=== PATIENT | female | born 1985 | race Caucasian/White ===

== ENCOUNTER 2018-02-15 15:58 | Inpatient (IN) | payer BC ==
[2018-02-15] MEDS ORDERED: AMPICILLIN SODIUM 2 GM VIAL ONE (17:10)
[2018-02-15] MEDS ORDERED: PROMETHAZINE HCL 25 MG/1 ML VIAL ONE (17:59)
[2018-02-15] MEDS ORDERED: BUTORPHANOL TARTRATE 1 MG/ML VIAL ONE ×2 (17:59)
[2018-02-15 18:30] VITALS: BMI 28.7
[2018-02-15] MEDS ORDERED: AMPICILLIN - 2 GM in SODIUM CHLORIDE 100 ML IVPB ONE (19:00)
[2018-02-15] MEDS ORDERED: TUBERCULIN PPD 5 TU/0.1ML SYRINGE (IN PATIENT USE ONLY) ID ONE (19:00)
[2018-02-15] MEDS ORDERED: BUTORPHANOL TARTRATE 1 MG/ML VIAL IVPB ONE (19:00)
[2018-02-15] MEDS ORDERED: PROMETHAZINE HCL 25 MG/1 ML VIAL IVPB ONE (19:00)
[2018-02-15] MEDS ORDERED: DEXTROSE 5%-LACTATED RINGERS 1,000 ML IV SCH (19:00)
[2018-02-15 19:28] LABS: BASO % 0.1 % (0-2.0); EOS % 0.4 % (0-4.5); HEMOGLOBIN 11.9 GM/dL (10.7-15.3); MCH 26.4 pg (25.7-33.7); MCHC 32.1 g/dl (32.0-36.0); MEAN CELL VOLUME 82.3 fl (80-96); MEAN PLT VOLUME 9.6 fl (7.5-11.1); MONO % 5.8 % (3.8-10.2); NEUT % 84.7 % (42.8-82.8); PLATELET COUNT 238 K/MM3 (134-434); RDW 15.8 % (11.6-15.6); WHITE BLOOD COUNT 21.4 K/mm3 (4.0-10.0)
[2018-02-15 19:43] LABS: INR 1.03 (0.83-1.09); PROTHROMBIN TIME (PATIENT) 12.1 SEC (9.7-13.0)
[2018-02-15 19:46] LABS: ACTIVATED PTT 28.9 SECONDS (25.2-36.5)
[2018-02-15 19:56] LABS: ANION GAP 12 MMOL/L (8-16); BLOOD UREA NITROGEN 7 mg/dL (7-18); CALCIUM 8.4 mg/dL (8.5-10.1); CHLORIDE 104 mmol/L (98-107); CO2 21 mmol/L (21-32); CREATININE 0.5 mg/dL (0.55-1.3); GLUCOSE,RANDOM 96 mg/dL (74-106); POTASSIUM 3.5 mmol/L (3.5-5.1); SODIUM 137 mmol/L (136-145)
[2018-02-15] MEDS ORDERED: LIDOCAINE HCL 1% PRESERVATIVE FREE - 30ML VIAL ONE (19:58)
[2018-02-15] MEDS ORDERED: OXYTOCIN 20 UNITS in 0.9% NS 20 UNIT/1,000 ML INFUS.BAG IV ONE (19:58)
--- NOTE | 2018-02-15 21:25 | HP ---
Past Medical History - Admission History of Present Illness: 32 yo @ 38 2/7 wks by first trimester ultrasound, EDC 02/27/2018 1. Prior at 36 wks, labor 2. Rh negative, s/p rhogam 12/04/2017 3. GBS positive, no penicillin allergy Patient presents with chief complaint of contractions which began at 1300 and increased in intensity and frequency. She experienced SROM on presentation to L& D. She reports movement, denies vaginal bleeding. History Source: Patient Limitations to Obtaining History: No Limitations - Past Medical History Cardiovascular: No: HTN Pulmonary: No: Asthma Gastrointestinal: No: GERD ...: 2 ...Para: 1 ...Term: 0 ...: 1 ...Spon : 0 ...Induced : 0 ...Multiple Gestation: 0 ...LMP: 05/24/17 ... Weeks Gestation by Dates: 38.1 ...EDC by Dates: 02/28/18 ...EDC by Sono: 02/27/18 Heme/Onc: No: Anemia - Past Surgical History Past Surgical History: Yes: None Hx Myomectomy: No Hx Transabdominal Cerclage: No - Smoking History Smoking history: Never smoked Have you smoked in the past 12 months: No - Alcohol/Substance Use Hx Alcohol Use: No - Social History History of Recent Travel: No Home Medications - Allergies Allergies/Adverse Reactions: Allergies Allergy/AdvReac Type Severity Reaction Status Date / Time No Known Allergies Allergy Verified 02/15/18 16:30 - Home Medications Home Medications: Ambulatory Orders Vit/Iron Fum/Folic AC [ Tablet] 1 each PO DAILY 02/20/16 Famotidine [Pepcid] 20 mg PO PRN 01/17/18 Family Disease History - Family Disease History Family History: Denies Review of Systems - Review of Systems Constitutional: reports: No Symptoms Cardiovascular: reports: No Symptoms Respiratory: reports: No Symptoms Gastrointestinal: reports: No Symptoms Musculoskeletal: reports: No Symptoms Integumentary: reports: No Symptoms Psychiatric: reports: No Symptoms Physical Exam - Maternity Vital Signs: Vital Signs Temperature 97.9 F 02/15/18 19:00 Pulse Rate 77 02/15/18 19:00 Respiratory Rate 20 02/15/18 19:00 Blood Pressure 121/77 02/15/18 19:00 O2 Sat by Pulse Oximetry (%) Constitutional: Yes: Well Nourished, No Distress, Calm Neck: Yes: Supple, Trachea Midline Cardiovascular: Yes: Regular Rate and Rhythm Lungs: Clear to auscultation - Abdominal Exam/OB Number of Fetuses: Single Presentation: Vertex Contractions: Yes Regularity: Regular Intensity: Moderate Monitor Mode: External Category: I Accelerations: Non-Uniform Decelerations: None - Physical Exam Psychiatric: Yes: Alert, Oriented - Labs Lab Results: CBC, BMP 02/15/18 19:10 02/15/18 19:10 Assessment/Plan 32 yo @ 38 3/7 wks active labor 1. Consents reviewed and signed 2. Admission labs reviewed 3. GBS positive 4. Will proceed with expectant management
[2018-02-15] MEDS: AMPICILLIN - 1 GM in SODIUM CHLORIDE 100 ML IVPB SCH (22:00)
[2018-02-15] MEDS ORDERED: AMPICILLIN SODIUM 1 GM VIAL ONE (22:10)
--- NOTE | 2018-02-15 22:46 | PN ---
Delivery - Delivery Vaginal Delivery: No Problems Episiotomy/Laceration: Midline, 1st degree EBL (cc): 400 Delivery, Single - Stages of Labor Date 1st Stage Initiatied: 02/15/18 Time 1st Stage Initiated: 13:00 Date 2nd Stage Initiated: 02/15/18 Time 2nd Stage Initiated: 22:00 Date of Delivery: 02/15/18 Time of Delivery: 22:23 Date Placenta Delivered: 02/15/18 Time Placenta Delivered: 22:32 - Condition of Infant Gender: Female Position: Right, OA Total Hours ROM (Hrs/Mins): 5 hours 40 minutes - 1 Minute Total Score: 9 5 Minutes Total Score: 9 - [place] Feeding Plan Initial Plan: Exclusive throughout hospitalization Remarks - Remarks Remarks: Patient progressed to fully dilated and at 2223 via delivered a viable female infant in GALLO position, APGARs 9,9. Weight and length unknown at this time. Head delivered spontaneously followed by shoulders and body without difficulty. Right compound hand noted. with spontaneous cry and placed on mother's abdomen. Nose and mouth was bulb suctioned. Cord was clamped and cut. Perineum and vagina examined, a first degree laceration was noted and repaired in the usual fashion. Placenta was delivered spontaneously and intact. Mild uterine atony noted, relieved with bimanual massage and 20 units of pitocin in 1 L IVF. All counts correct x 2. Mother and infant stable in LDR. EBL 400cc.
[2018-02-15 22:56] LABS: PLATELET ESTIMATE ADEQUATE
[2018-02-15] MEDS ORDERED: BENZOCAINE 28 GM HEMORRHOIDAL OINTMENT TP PRN (23:00)
[2018-02-15] MEDS ORDERED: WITCH HAZEL 50% (TUCKS) 40 PAD/JAR PAD TP PRN (23:00)
[2018-02-15] MEDS ORDERED: BISACODYL 10 MG SUPP.RECT RC PRN (23:00)
[2018-02-15] MEDS ORDERED: BENZOCAINE 20% 57 GM BOTTLE TP PRN (23:00)
[2018-02-15] MEDS ORDERED: METHYLERGONOVINE MALEATE 0.2 MG/1 ML AMP IM PRN (23:00)
[2018-02-15] MEDS ORDERED: OXYTOCIN 20 UNITS in 0.9% NS 20 UNIT/1,000 ML INFUS.BAG IV SCH (23:30)
[2018-02-16] MEDS: AMPICILLIN - 1 GM in SODIUM CHLORIDE 100 ML IVPB SCH (01:30)
[2018-02-16] MEDS: ACETAMINOPHEN 325 MG TABLET (FP) PO PRN ×2 (03:32→13:46)
[2018-02-16] MEDS: IBUPROFEN 600 MG TABLET (FP) PO PRN ×2 (03:33→13:46)
[2018-02-16 08:10] LABS: BASO % 0.1 % (0-2.0); EOS % 0.2 % (0-4.5); HEMATOCRIT 29.7 % (32.4-45.2); HEMOGLOBIN 9.9 GM/dL (10.7-15.3); LYMPH % 9.5 % (8-40); MCH 27.3 pg (25.7-33.7); MCHC 33.3 g/dl (32.0-36.0); MEAN CELL VOLUME 81.9 fl (80-96); MEAN PLT VOLUME 9.5 fl (7.5-11.1); MONO % 10.6 % (3.8-10.2); NEUT % 79.6 % (42.8-82.8); PLATELET COUNT 250 K/MM3 (134-434); RBC 3.62 M/mm3 (3.60-5.2); RDW 15.7 % (11.6-15.6); WHITE BLOOD COUNT 23.9 K/mm3 (4.0-10.0)
[2018-02-16] MEDS: FERROUS SO4 325 MG TABLET (FP) PO SCH ×3 (09:00→17:18)
[2018-02-16] MEDS: PRENATAL VITAMINS W/ FOLIC ACID TABLET (FP) PO SCH (09:20)
[2018-02-16 12:14] LABS: ANISOCYTOSIS 1+; MACROCYTOSIS 0; PLATELET ESTIMATE NORMAL
[2018-02-16] MEDS ORDERED: SENNOSIDES/DOCUSATE COMBO (SENNA PLUS) TABLET (UD) PO PRN (22:00)
[2018-02-17] MEDS: IBUPROFEN 600 MG TABLET (FP) PO PRN (07:27)
--- NOTE | 2018-02-17 07:49 | PN ---
Post Progress Note - Subjective Subjective: Patient without acute complaints. Reports tolerating oral intake without nausea or vomiting. Ambulating without dizziness. Denies fevers or chills. Pain well controlled with oral pain medication. without difficulty. Passing flatus. Post Day: 2 Type of Delivery: Vital Signs: Vital Signs Temperature 98.8 F 02/16/18 21:00 Pulse Rate 82 02/16/18 21:00 Respiratory Rate 18 02/16/18 21:00 Blood Pressure 116/58 L 02/16/18 21:00 O2 Sat by Pulse Oximetry (%) 100 02/15/18 23:35 - Labs Labs: CBC WBC 23.9 K/mm3 (4.0-10.0) H 02/16/18 07:00 RBC 3.62 M/mm3 (3.60-5.2) 02/16/18 07:00 Hgb 9.9 GM/dL (10.7-15.3) L 02/16/18 07:00 Hct 29.7 % (32.4-45.2) L D 02/16/18 07:00 MCV 81.9 fl (80-96) 02/16/18 07:00 MCH 27.3 pg (25.7-33.7) 02/16/18 07:00 MCHC 33.3 g/dl (32.0-36.0) 02/16/18 07:00 RDW 15.7 % (11.6-15.6) H 02/16/18 07:00 Plt Count 250 K/MM3 (134-434) 02/16/18 07:00 MPV 9.5 fl (7.5-11.1) 02/16/18 07:00 Absolute Neuts (auto) 19.0 K/mm3 (1.5-8.0) H 02/16/18 07:00 Neutrophils % 79.6 % (42.8-82.8) 02/16/18 07:00 Neutrophils % (Manual) 74.8 % (42.8-82.8) 02/16/18 07:00 Band Neutrophils % 0.0 % 02/16/18 07:00 Lymphocytes % 9.5 % (8-40) 02/16/18 07:00 Lymphocytes % (Manual) 14.1 % (8-40) 02/16/18 07:00 Monocytes % 10.6 % (3.8-10.2) H D 02/16/18 07:00 Monocytes % (Manual) 11 % (3.8-10.2) H D 02/16/18 07:00 Eosinophils % 0.2 % (0-4.5) 02/16/18 07:00 Eosinophils % (Manual) 0.0 % (0-4.5) 02/16/18 07:00 Basophils % 0.1 % (0-2.0) 02/16/18 07:00 Basophils % (Manual) 0.0 % (0-2.0) 02/16/18 07:00 Myelocytes % (Man) 0 % (0-2) 02/16/18 07:00 Promyelocytes % (Man) 0 % (0-2) 02/16/18 07:00 Blast Cells % (Manual) 0 % (0-0) 02/16/18 07:00 Nucleated RBC % 0 % (0-0) 02/16/18 07:00 Metamyelocytes 0 % (0-2) 02/16/18 07:00 Hypochromia 0 02/16/18 07:00 Platelet Estimate Normal 02/16/18 07:00 Polychromasia 1+ 02/16/18 07:00 Poikilocytosis 0 02/16/18 07:00 Anisocytosis 1+ 02/16/18 07:00 Microcytosis 1+ 02/16/18 07:00 Macrocytosis 0 02/16/18 07:00 Assessment/Plan 32 yo PPD # 2 s/p , afebrile, vital signs stable, stable for discharge home 1. Patient stable for discharge home today. 2. Patient encouraged to contact MD for: - Severe pain not controlled by oral pain medication - Fevers or chills - Nausea or vomiting, intolerance of oral intake 3. Patient to follow up in office in 4-6 weeks for visit
--- NOTE | 2018-02-17 07:54 | DS ---
Physical Exam-ONCOLOGY PHYSICIAN Vital Signs: Vital Signs Temperature 98.8 F 02/16/18 21:00 Pulse Rate 82 02/16/18 21:00 Respiratory Rate 18 02/16/18 21:00 Blood Pressure 116/58 L 02/16/18 21:00 O2 Sat by Pulse Oximetry (%) 100 02/15/18 23:35 Labs: CBC, BMP 02/16/18 07:00 02/15/18 19:10 Delivery - Delivery Vaginal Delivery: No Problems Type of Anesthesia: Spinal Episiotomy/Laceration: 1st degree EBL (cc): 400 Delivery, Single - Stages of Labor Date 1st Stage Initiatied: 02/15/18 Time 1st Stage Initiated: 13:00 Date 2nd Stage Initiated: 02/15/18 Time 2nd Stage Initiated: 22:10 Date of Delivery: 02/15/18 Time of Delivery: 22:23 Time Placenta Delivered: 22:32 - Condition of Curatorial Assistant/Steward/Stewardess Banquet Present: No Gender: Female Weight: 7 lb 4 oz Position: Right, OA Total Hours ROM (Hrs/Mins): 5Hrs/40Mins - 1 Minute Total Score: 9 5 Minutes Total Score: 9 - [place] Feeding Plan Initial Plan: Exclusive throughout hospitalization Discharge Summary Reason For Visit: LABOR Current Active Problems Anemia (Acute) Vaginal delivery (Acute) Procedures: Principal: Vaginal Delivery Hospital Course: Patient was admitted in active labor, proceeded to deliver via . PPD # 1 patient ambulated, voiding, passing gas, tolerating oral intake and with adequate pain control. She was noted to have mild anemia. She fulfilled all criteria for discharge PPD #2 Condition: Good - Instructions Diet, Activity, Other Instructions: Physical activity Resume your normal everyday activity as tolerated no heavy lifting or exercise until seen by your surgeon. You may walk unlimited rodo of and climb stairs. You may resume driving the car when you feel safe and comfortable behind the wheel. No sexual activity as instructed. Diet There are no dietary restrictions. Eat healthy, high-fiber foods. Drink 6 to 8 glasses of liquid each day. This will assist in keeping your bowels are regular. Pain management You may take Tylenol or acetaminophen or Ibuprofen (for example, Motrin, Advil etc.) from my pain prescription medication is ordered should be taken as prescribed for moderate to severe pain. Call MD for any of the following: Severe pain not relieved by medication Fever of 101 or higher Excessive bleeding or drainage on dressing Inability to urinate Referrals: Alexander Resendiz MD [Staff Physician] - Anahy Morrison MD [Staff Physician] - Disposition: HOME - Home Medications Comprehensive Discharge Medication List: Ambulatory Orders Vit/Iron Fum/Folic AC [ Tablet] 1 each PO DAILY 02/20/16 Famotidine [Pepcid] 20 mg PO PRN 01/17/18
[2018-02-17] MEDS: PRENATAL VITAMINS W/ FOLIC ACID TABLET (FP) PO SCH (09:48)
[2018-02-17] MEDS: FERROUS SO4 325 MG TABLET (FP) PO SCH ×2 (09:48→11:42)
[2018-02-17 12:43] VITALS: BP 115/74; PULSE 87; TEMP 97.9
== END 2018-02-17 11:50 | disposition home or self-care (01) | DRG 807 ==
LOC: JDEL 15:58 → JLDR 16:56 → J3W 02-16 01:00
PROVIDERS: ADMIT Obstetrics & Gynecology; ATTEND Obstetrics & Gynecology
PROC: 10E0XZZ Delivery of Products of Conception, External Approach (ICD-10-PCS; principal; 2018-02-15)
PROC: 0W8NXZZ Division of Female Perineum, External Approach (ICD-10-PCS; 2018-02-15)
PROC: 0HQ9XZZ Repair Perineum Skin, External Approach (ICD-10-PCS; 2018-02-15)
PROC: 3E0334Z Introduction of Serum, Toxoid and Vaccine into Peripheral Vein, Percutaneous Approach (ICD-10-PCS; 2018-02-15)
DX: O70.0 First degree perineal laceration during delivery (principal); Z37.0 Single live birth; O99.013 Anemia complicating pregnancy, third trimester; D64.9 Anemia, unspecified; Z22.330 Carrier of Group B streptococcus; Z29.13 Encounter for prophylactic Rho(D) immune globulin; Z3A.38 38 weeks gestation of pregnancy
CPT/HCPCS: 36415; 59025; 59409; 80048; 85025; 85461; 85610; 85730; 86593; 86850; 86870; 86900; 86901; 86902; 86999; 87389

== ENCOUNTER 2018-05-13 13:56 | Emergency (ER) | payer BC ==
--- NOTE | 2018-05-13 14:12 | PDOC ---
Rapid Medical Evaluation Time Seen by Provider: 05/13/18 14:09 Medical Evaluation: Allergies Allergy/AdvReac Type Severity Reaction Status Date / Time No Known Allergies Allergy Verified 02/15/18 16:30 05/13/18 14:09 I have performed a brief in-person evaluation of the patient. The patient presents with a chief complaint of: lower abdominal intermittent cramping since yesterday 11 weeks post . Denies dysuria, vaginal discharge, constipation or diarrhea Pertinent physical exam findings. NAD clear unlabored breathing +tenderness in lower abdomen I have ordered the following. urinalysis ordered The patient will proceed to the ED for further evaluation.
[2018-05-13 14:15] VITALS: BP 112/70; PULSE 92; TEMP 98.1; BMI 27.3
--- NOTE | 2018-05-13 14:37 | PDOC ---
Attending Attestation - Resident Resident Name: Librado Loja - ED Attending Attestation I have performed the following: I have examined & evaluated the patient, The case was reviewed & discussed with the resident, I agree w/resident's findings & plan, Exceptions are as noted - HPI HPI: 05/13/18 14:34 33y F 11 weeks vag delivery, presents with lower abd pain that started last night in setting of lifting several heavy boxes. pt notes the patient has had intermittent sharp cramping pain that is suprapubic in nature lasts for seconds at a time efore resolving. no associated fever/chills, n/v, dysuria, hematuria, diarrhea, back pain. Pt endorses having her period currently. no hx of kdiney stones. no pain with movement/walking around. - Physicial Exam PE: 05/13/18 15:21 GENERAL: The patient is awake, alert, and fully oriented, Nontoxic - in no acute distress. HEAD: Normocephalic, atraumatic. EYES: extraocular movements intact, sclera anicteric, conjunctiva clear. ENT: Normal voice, Moist mucous membranes. NECK: Normal range of motion, supple LUNGS: Breath sounds equal, clear to auscultation bilaterally. No wheezes, no rhonchi, no rales. HEART: Regular rate and rhythm, normal S1 and S2 without murmur, rub or gallop. ABDOMEN:mild suprapubic tenderness R>L, no cva tenderness, EXTREMITIES: Normal range of motion, no edema. NEUROLOGICAL: No facial assymetry, Normal speech, PSYCH: Normal mood, normal affect. SKIN: Warm, Dry, normal turgor, - Medical Decision Making 05/13/18 15:23 ddx - msk vs kidney stones, vs pelvic pathology pelvic exam deferred as pt had one at dr. herzog office 05/13/18 17:51 TVUS is negative labs unremarkble pt efeling improved will defer CT at this point strict return precautions were discussed
[2018-05-13] MEDS ORDERED: ACETAMINOPHEN 1000 MG/100 ML VIAL (NON FORMULARY) IVPB ONE (14:41)
[2018-05-13 14:49] LABS: ALK PHOS 80 U/L (45-117); ANION GAP 6 MMOL/L (8-16); BASO % 0.2 % (0-2.0); BILIRUBIN,TOTAL 0.3 mg/dL (0.2-1); BLOOD UREA NITROGEN 11 mg/dL (7-18); CALCIUM 8.6 mg/dL (8.5-10.1); CHLORIDE 106 mmol/L (98-107); CO2 26 mmol/L (21-32); CREATININE 0.7 mg/dL (0.55-1.3); EOS % 1.8 % (0-4.5); GLUCOSE,RANDOM 101 mg/dL (74-106); HEMATOCRIT 38.1 % (32.4-45.2); HEMOGLOBIN 12.9 GM/dL (10.7-15.3); LYMPH % 17.1 % (8-40); MCHC 33.9 g/dl (32.0-36.0); MEAN CELL VOLUME 85.7 fl (80-96); MONO % 6.1 % (3.8-10.2); NEUT % 74.8 % (42.8-82.8); PLATELET COUNT 253 K/MM3 (134-434); RBC 4.44 M/mm3 (3.60-5.2); RDW 16.3 % (11.6-15.6); SGOT/AST 31 U/L (15-37); SGPT/ALT 57 U/L (13-61); SODIUM 138 mmol/L (136-145); TOT PROT 7.7 g/dl (6.4-8.2); WHITE BLOOD COUNT 9.6 K/mm3 (4.0-10.0)
[2018-05-13 15:02] LABS: URINE APPEARANCE CLEAR; URINE BILIRUBIN NEGATIVE (<2.0 mg/dL); URINE COLOR STRAW; URINE GLUCOSE (UA) NEGATIVE (NEGATIVE); URINE KETONE NEGATIVE (NEGATIVE); URINE LEUK ESTERASE NEGATIVE (NEGATIVE); URINE NITRITE NEGATIVE (NEGATIVE); URINE PROTEIN NEGATIVE (NEGATIVE); URINE UROBILINOGEN NEGATIVE mg/dL (0.2-1.0)
[2018-05-13 15:03] LABS: EPI CELLS RARE /HPF (FEW); URINE MUCUS RARE
--- NOTE | 2018-05-13 15:50 | PDOC ---
History of Present Illness - General Chief Complaint: Pain, Acute Stated Complaint: SENT BY PCP Time Seen by Provider: 05/13/18 14:09 History Source: Patient Exam Limitations: No Limitations - History of Present Illness Initial Comments: 05/13/18 15:45 Patient is a 33F with history of normal vaginal delivery 11 weeks ago here today complaining of lower abdominal pain that started last night after lifting several heavy boxes. Denies vaginal pain, vaginal discharge. Patient states that she is having her normal menstruation at this time. Denies fevers, chills, nausea, vomiting. Denies constipation and diarrhea. Denies dysuria. Patient was evaluated by Dr Resendiz who I spoke with over the phone, pelvic exam was normal with no CMT or adnexal tenderness. Past History - Past Medical History Allergies/Adverse Reactions: Allergies Allergy/AdvReac Type Severity Reaction Status Date / Time No Known Allergies Allergy Verified 05/13/18 14:10 Asthma: No Cancer: No Cardiac Disorders: No COPD: No Diabetes: No HTN: No Seizures: No Thyroid Disease: No - Suicide/Smoking/Psychosocial Hx Smoking History: Never smoked Have you smoked in the past 12 months: No Hx Alcohol Use: No Drug/Substance Use Hx: No Hx Substance Use Treatment: No Review of Systems - Review of Systems Comments:: 05/13/18 15:47 GENERAL/CONSTITUTIONAL: No fever or chills. No weakness. HEAD, EYES, EARS, NOSE AND THROAT: No change in vision. No sore throat. CARDIOVASCULAR: No chest pain or shortness of breath RESPIRATORY: No cough, wheezing, or hemoptysis. GASTROINTESTINAL: No nausea, vomiting, diarrhea or constipation. GENITOURINARY: No dysuria, frequency, or change in urination. MUSCULOSKELETAL: No joint or muscle swelling or pain. No neck or back pain. SKIN: No rash NEUROLOGIC: No headache, vertigo, loss of consciousness, or change in strength/ sensation. ENDOCRINE: No increased thirst. No abnormal weight change HEMATOLOGIC/LYMPHATIC: No anemia, easy bleeding, or history of blood clots. ALLERGIC/IMMUNOLOGIC: No hives or skin allergy. *Physical Exam - Vital Signs Last Vital Signs Temp Pulse Resp BP Pulse Ox 98.1 F 92 H 20 112/70 97 05/13/18 14:12 05/13/18 14:12 05/13/18 14:12 05/13/18 14:12 05/13/18 14:12 - Physical Exam Comments: 05/13/18 15:48 GENERAL: Awake, alert, and fully oriented, in no acute distress HEAD: No signs of trauma, normocephalic, atraumatic EYES: PERRLA, EOMI, sclera anicteric, conjunctiva clear ENT: Auricles normal inspection, hearing grossly normal, nares patent, oropharynx clear without exudates. Moist mucosa NECK: Normal ROM, supple, no lymphadenopathy, JVD, or masses LUNGS: No distress, speaks full sentences, clear to auscultation bilaterally HEART: Regular rate and rhythm, normal S1 and S2, no murmurs, rubs or gallops, peripheral pulses normal and equal bilaterally. ABDOMEN: Tender in RLQ and LLQ, R>L with some suprapubic tenderness. No rebound , no guarding. EXTREMITIES: Normal inspection, Normal range of motion, no edema. No clubbing or cyanosis. NEUROLOGICAL: Cranial nerves II through XII grossly intact. Normal speech, normal gait, no focal sensorimotor deficits SKIN: Warm, Dry, normal turgor, no rashes or lesions noted. Moderate Sedation - Procedure Monitoring Vital Signs: Procedure Monitoring Vital Signs Temperature 98.1 F 05/13/18 14:12 Pulse Rate 92 H 05/13/18 14:12 Respiratory Rate 20 05/13/18 14:12 Blood Pressure 112/70 05/13/18 14:12 O2 Sat by Pulse Oximetry (%) 97 05/13/18 14:12 ED Treatment Course - LABORATORY CBC & Chemistry Diagram: 05/13/18 14:19 05/13/18 14:19 - ADDITIONAL ORDERS Additional order review: Laboratory Results 05/13/18 05/13/18 05/13/18 14:25 14:25 14:19 Sodium 138 Potassium 4.0 Chloride 106 Carbon Dioxide 26 Anion Gap 6 L BUN 11 Creatinine 0.7 Creat Clearance w eGFR > 60 Random Glucose 101 Calcium 8.6 Total Bilirubin 0.3 AST 31 ALT 57 Alkaline Phosphatase 80 Total Protein 7.7 Albumin 4.0 Urine Color Straw Urine Appearance Clear Urine pH 5.0 D Ur Specific [place] 1.009 L Urine Protein Negative Urine Glucose (UA) Negative Urine Ketones Negative Urine Blood 3+ H Urine Nitrite Negative Urine Bilirubin Negative Urine Urobilinogen Negative Ur Leukocyte Esterase Negative Urine WBC (Auto) 1 Urine RBC (Auto) 8 Ur Epithelial Cells Rare Urine Mucus Rare Urine HCG, Qual Negative 05/13/18 14:19 RBC 4.44 MCV 85.7 MCHC 33.9 RDW 16.3 H MPV 9.0 Neutrophils % 74.8 Lymphocytes % 17.1 D Monocytes % 6.1 Eosinophils % 1.8 D Basophils % 0.2 - RADIOLOGY Radiology Studies Ordered: Category Date Time Status TRANSVAGINAL ULTRASOUND US [US] Stat Ultrasound 05/13/18 14:37 Ordered Medical Decision Making - Medical Decision Making 05/13/18 15:48 Patient is 33F with history of giving 11 wks ago here today with lower abdominal pain. Vitals normal and stable. Deferring pelvic exam because of OBGYN 's prior evaluation. Will evaluate with abdominal labs, tvus. Patient upright, sitting comfortably, does not appear to be peritoneal. 05/13/18 17:51 CBC normal. CMP reassuring. UA clear. US shows no acute abnormalities. Patient reassessed, pain improved. Discussed the possibility that she may have appendicitis and offered CT scan. Patient states that she has to get home to take care of her 2 year old. Still shows no peritoneal signs on exam. Will discharge with strict return precautions. *DC/Admit/Observation/Transfer Diagnosis at time of Disposition: Abdominal pain - Discharge Dispostion Disposition: HOME Condition at time of disposition: Good Decision to Admit order: No - Referrals Referrals: Cheryl Holly MD [Primary Care Provider] - - Patient Instructions Printed Discharge Instructions: DI for Abdominal Pain-Adult Additional Instructions: As we discussed, all of your lab work and your ultrasound came back normal. However, it is still possible that you have appendicitis. Please return immediately if you develop increasing pain, fever, vomiting or any other concerns. Please follow up with your primary care doctor this week. - Post Discharge Activity
[2018-05-13] MEDS ORDERED: ACETAMINOPHEN INJECTION 100 ML IVPB ONE (16:43)
[2018-05-13] MEDS ORDERED: ACETAMINOPHEN 500 MG TABLET (FP) PO ONE (16:50)
[2018-05-13] MEDS ORDERED: ACETAMINOPHEN 325 MG TABLET (FP) ONE (16:59)
== END 2018-05-13 18:13 | disposition home or self-care (01) ==
LOC: JER 13:56
DX: R10.30 Lower abdominal pain, unspecified (principal)
CPT/HCPCS: 36415; 76830-TC; 80053; 81003; 81015; 84703; 85025; 99281-25